=== PATIENT | male | born 1955 | race African-American/Black ===

== ENCOUNTER 2018-09-25 13:31 | Day surgery (SDC) | payer SELFPAY ==
[~2018-09-25] VITALS: Ht 190.5 cm; Wt 73.2 kg
[2018-09-25] MEDS ORDERED: HCTZ 25MG TAB25 MG PO (14:09)
[2018-09-25 14:26] VITALS: BP 11/84; PULSE 102; TEMP 98.7
[2018-09-25 15:43] VITALS: BP 117/76; PULSE 97
--- NOTE | 2018-09-25 15:43 | NUR ---
Patient returned back to bay 6. Alert and oriented, ambulated to chair without difficulty. Vital signs WNL. Denies any pain or nausea. Makenzie at bedside. Call cutler within reach, will continue to monitor.
[2018-09-25 15:58] VITALS: BP 116/77; PULSE 88
--- NOTE | 2018-09-25 15:58 | NUR ---
Patient requesting juice, muffin, and crackers at this time. Vital signs stable. Will continue to monitor.
[2018-09-25 16:13] VITALS: BP 108/76; PULSE 100
--- NOTE | 2018-09-25 16:13 | NUR ---
Patient states he is ready to go home at this time. Vital signs stable. Tolerated food and drink without difficulty.
--- NOTE | 2018-09-25 16:20 | NUR ---
Discharge instructions reviewed with patient and extensively. Per Endo report given to patient. Verbalized understanding. IV removed per protocol. Patient to get dressed at this time.
--- NOTE | 2018-09-25 16:24 | NUR ---
Patient ambulated down to lobby without issue. To be driven home by Makenzie.
[2018-09-25 16:49] VITALS: BP 93/64; PULSE 90
== END 2018-09-25 16:24 | disposition home or self-care (01) ==
LOC: EDSEX 13:31 → SDCO 13:31
DX: C18.2 Malignant neoplasm of ascending colon (principal); Z79.82 Long term (current) use of aspirin; K59.00 Constipation, unspecified
CPT/HCPCS: J2250; J2405; J3010; J7030

== ENCOUNTER 2018-10-02 12:19 | Inpatient (IN) | payer OTHER ==
[~2018-10-02] VITALS: Ht 190.5 cm; Wt 74.0 kg
[~2018-10-02 12:19] MED LIST: HCTZ 25MG TAB25 MG PO
[2018-10-14] VITALS (16 sets, daily range): BP systolic 118–146; BP diastolic 82–99; PULSE 71–99; TEMP 97.6–98.6
--- NOTE | 2018-10-14 11:20 | NUR ---
Patient brought back to bay 4, steady on feet. Alert and oriented x4. Consents reviewed and signed, all questions answered. Lab called STAT, awaiting results. IV started in right hand, infusing WNL. Vital signs WNL. Heart sounds regular, lung sounds clear, bowel sounds active. Sondra at bedside. Call cutler within reach, will continue to monitor.
[2018-10-14 11:45] LABS: MEAN CELL VOLUME 55 fl (80.0-100.0); MEAN CORPUSCULAR HGB CONC 26 g/dl (33.0-37.0); MEAN PLATELET VOLUME 8.1 fl (7.4-10.4); PLATELET COUNT 611 K/mm3 (130-400); RED BLOOD COUNT 3.81 M/mm3 (4.20-5.60); REDCELL DISTRIBUTION WIDTH-CV 22.7 % (11.5-14.5)
--- NOTE | 2018-10-14 11:50 | NUR ---
Hemaglobin low at 5.4 Dr. Kat made aware. Awaiting further orders.
[2018-10-14 11:51] LABS: HEMOGLOBIN 5.4 g/dl (13.5-18.0); MEAN CORPUSCULAR HEMOGLOBIN 14 pg (27.0-31.0)
[2018-10-14 11:56] LABS: ALBUMIN 3.6 gm/dL (3.5-5.0); BILIRUBIN,TOTAL 0.3 mg/dL (0.0-1.0); CALCIUM 9.5 mg/dL (8.4-10.2); CREATININE, serum 1.22 (0.66-1.25); POTASSIUM 3.8 mmol/L (3.4-5.0); TOTAL PROTEIN 7.3 gm/dL (6.4-8.2)
--- NOTE | 2018-10-14 13:30 | NUR ---
Per Dr. Kat patient to be admitted to surgical floor. Given room 347. Report called to Bianca BRADSHAW, all questions answered. Patient to be transported to floor.
--- NOTE | 2018-10-14 14:15 | NUR ---
Patient brought up to room 347 via wheelchair. Nurse Bianca in room.
--- NOTE | 2018-10-14 15:02 | NUR ---
Patient to room 347 from ambulatory, report obtained from Megan in Same day surgery. Patient oriented to room. Clear liquid tray ordered, patient report feeling hungry. Iv to Right wrist. We reviewed orders for blood transfusion. Blood obtained & protocol followed. Verified with AUGUSTINE Ngo. Signs & symptoms of a transfusion reaction reviewed. Infusing at 60ml.hr. Vss
--- NOTE | 2018-10-14 17:55 | NUR ---
Patient resting in bed. He tolerated the first unit of blood with no sign or symptoms of reaction. patient up to the bathroom, voided. He continues to tolerate clears. Second unit of blood started. Blood protocol followed & verified with Taylor Ngo. Infusing to Right wrist @ 60ml/hr. Vss on room air. Will closely monitor.
--- NOTE | 2018-10-14 19:10 | NUR ---
Patient up to the bathroom, voided. He continues to tolerate blood transfusion, reports feeling good. VSS. Will report off to Mario BRADSHAW
--- NOTE | 2018-10-14 20:00 | NUR ---
SHIFT REPORT OBTAINED FROM HANY BRADSHAW. PT RESTING IN BED. NO DISTRESS NOTED. #2 BLOOD CONTINUES TO INFUSE WITHOUT DIFFICULTY. DENIES ANY PAIN.
[2018-10-14 22:22] LABS: HEMATOCRIT 23.1 % (42.0-52.0)
[2018-10-14 22:25] LABS: HEMOGLOBIN 6.4 g/dl (13.5-18.0)
--- NOTE | 2018-10-14 22:28 | NUR ---
CRITICAL LAB VALUE REPORTED. HGB 6.4. WILL NEED A 3RD UNIT OF BLOOD. VSS. INT NEEDLE FLUSHES W/O DIFFICULTY.
--- NOTE | 2018-10-14 23:05 | NUR ---
#3 UNIT OF PRBC STARTED NOW. REVIEWED POSSIBLE S/E OR ADVERSE REACTIOS TO IMMEDIATELY NOTIFY THE NURSE. PT VERBALIZED UNDERSTANDING,
--- NOTE | 2018-10-14 23:56 | NUR ---
PT TOLERATING BLOOD INFUSION WITHOUT DIFFICULTY.
[2018-10-15] VITALS (12 sets, daily range): BP systolic 128–150; BP diastolic 84–105; PULSE 69–83; TEMP 97.5–98.4
--- NOTE | 2018-10-15 02:05 | NUR ---
#3 UNIT OF BLOOD COMPLETED. NO REACTION NOTED. TOLERATED WELL. STARTED LR AT 100CC/HR TO RT F/A.
--- NOTE | 2018-10-15 02:15 | NUR ---
PT REPORTED HE HAD A BLOODY BM. HE FLUSHED IT. INSTRUCTED NOT TO FLUSH TOILET NEXT TIME. PT VERBALIZED UNDERSTANDING. PT DENIES PAIN AT THIS TIME.
--- NOTE | 2018-10-15 03:33 | NUR ---
PT REPORTED ANOTHER BLOODY STOOL. BRIGHT RED BLOOD IN STOOL. OUTPUT HAT PLACED IN TOILET. INSTRUCTED TO USE URINAL FOR ACCURATE OUTPUT. DENIES DIZZINESS. HAS MINOR PAIN TO RLQ. HAS BEEN CHRONICALLY TENDER TO TOUCH. DENIES NEED FOR PAIN MEDICATION. NOTIFIED HOSPITAL SECURITY OFFICER OF ACTIVE BLEEDING. RECOMMENDED TO SEE WHAT THE OUTPUT IS WITH NEXT STOOL. PT INSTRUCTED AND VERBALIZED UNDERSTANDING.
--- NOTE | 2018-10-15 04:41 | NUR ---
PT RESTING. NO RESP DISTRESS.
--- NOTE | 2018-10-15 04:50 | NUR ---
PT RESTING. NO FURTHER RECTAL BLEEDING. NO PAIN.
[2018-10-15 05:58] LABS: BASO # 0.1 (0.0-0.2); BASO % 0.9 % (0.0-2.0); EOS # 0.1 (0.0-0.7); EOS % 2.2 % (0-4.0); GRAN # 3.4 (1.4-6.5); GRAN % 62.1 % (42.2-75.2); LYMPH # 1.3 (1.2-3.4); LYMPH % 23.7 % (20.0-51.0); MEAN CORPUSCULAR HGB CONC 29 g/dl (33.0-37.0); MEAN PLATELET VOLUME 8.8 fl (7.4-10.4); MONO # 0.6 (0.1-0.6); MONO % 10.9 % (1.7-9.3); RED BLOOD COUNT 3.99 M/mm3 (4.20-5.60); REDCELL DISTRIBUTION WIDTH-CV 31.2 % (11.5-14.5)
[2018-10-15 05:59] LABS: HEMATOCRIT 25.3 % (42.0-52.0); HEMOGLOBIN 7.3 g/dl (13.5-18.0); MEAN CELL VOLUME 63 fl (80.0-100.0); MEAN CORPUSCULAR HEMOGLOBIN 18 pg (27.0-31.0); PLATELET COUNT 471 K/mm3 (130-400)
--- NOTE | 2018-10-15 06:00 | NUR ---
PT HAD RESTING. NO RESP DISTRESS. PT HAS NOT SLEPT WELL TONIGHT.
[2018-10-15 06:07] LABS: ALBUMIN 2.9 gm/dL (3.5-5.0); CALCIUM 9.1 mg/dL (8.4-10.2); CREATININE, serum 1.13 (0.66-1.25); PHOSPHOROUS 3.6 mg/dL (2.5-4.5); POTASSIUM 4.4 mmol/L (3.4-5.0)
--- NOTE | 2018-10-15 07:00 | NUR ---
Report received from AUGUSTINE Vásquez. PT in bed resting after stool in hat in commode, stool is tigist red. Liquid output. PT states this is the first time he has bene able to really see it in a hat from the toilet and is surprised at how bloody it is appearing. Otherwise denies needs, will continue to monitor.
--- NOTE | 2018-10-15 10:40 | NUR ---
Assessment charted. Discussed lab values, plan of care, IVF to RW. Pt deneis any pain. REsting quietly in bed, encouraged CL protein rich foods today. Will continue to monitor.
[2018-10-15 11:26] LABS: INR 1.3 (0.8-3.0); PROTHROMBIN TIME 15.4 SECONDS (9.7-12.8)
--- NOTE | 2018-10-15 14:58 | NUR ---
Remained with patient for first 15 minutes of PRBCs tranfusion. Pt has no s/sx of a transfusion reaction. Verified with 2nd RN. Pt tolerating well, resting quietly in bed. Denies needs, will continue to monitor.
--- NOTE | 2018-10-15 18:08 | NUR ---
Pt has done well today. PT resting in bed. Up to shower today, resting in bed after transfusion. Has had 3 liquid bloody stools today. Feels well. Eating large clear liquid tray for supper at this time. IVF to RF. Aware he is NPO at midnight. Will give bedside shift report to [facility] nurse who will resume care.
--- NOTE | 2018-10-15 20:05 | NUR ---
Pt. sitting up in bed at this time. Pt. is A&OX3, assessment complete. IV to rt. forearm patent. Pt. denies pain or other needs at this time.
[2018-10-15 21:30] LABS: HEMATOCRIT 30.4 % (42.0-52.0); HEMOGLOBIN 8.8 g/dl (13.5-18.0)
[2018-10-16] VITALS (13 sets, daily range): BP systolic 123–157; BP diastolic 84–104; PULSE 70–93; TEMP 98.1–98.4
--- NOTE | 2018-10-16 06:04 | NUR ---
Pt. slept well through the night. Pt. remains A&OX3. IV to rt. forearm remains patent, IV fluids infusing per orders. Pt. denies pain or other needs at this time. Call light within reach.
[2018-10-16 06:06] LABS: BASO # 0.1 (0.0-0.2); EOS # 0.2 (0.0-0.7); EOS % 2.6 % (0-4.0); GRAN # 3.3 (1.4-6.5); GRAN % 57.1 % (42.2-75.2); LYMPH # 1.7 (1.2-3.4); LYMPH % 28.8 % (20.0-51.0); MEAN CELL VOLUME 65 fl (80.0-100.0); MEAN CORPUSCULAR HGB CONC 29 g/dl (33.0-37.0); MEAN PLATELET VOLUME 8.7 fl (7.4-10.4); MONO # 0.6 (0.1-0.6); MONO % 10.2 % (1.7-9.3); PLATELET COUNT 460 K/mm3 (130-400)
[2018-10-16 06:21] LABS: ALBUMIN 2.7 gm/dL (3.5-5.0); CREATININE, serum 1.07 (0.66-1.25); PHOSPHOROUS 3.6 mg/dL (2.5-4.5); POTASSIUM 3.9 mmol/L (3.4-5.0)
[2018-10-16 06:38] LABS: HEMATOCRIT 27.9 % (42.0-52.0); HEMOGLOBIN 8.1 g/dl (13.5-18.0); MEAN CORPUSCULAR HEMOGLOBIN 19 pg (27.0-31.0)
[2018-10-16 12:59] LABS: HEMATOCRIT 28.4 % (42.0-52.0); HEMOGLOBIN 8.4 g/dl (13.5-18.0)
--- NOTE | 2018-10-16 13:22 | NUR ---
SW attempted to meet with the patient. The patient was in surgery, SW will attempt at a later time.
[2018-10-16 17:27] LABS: HEMATOCRIT 29.1 % (42.0-52.0); HEMOGLOBIN 8.6 g/dl (13.5-18.0)
[2018-10-16 17:35] LABS: CREATININE, serum 1.21 (0.66-1.25); POTASSIUM 4.5 mmol/L (3.4-5.0)
--- NOTE | 2018-10-16 18:10 | NUR ---
Patient returns from surgery, assessment unchanged except for abdomen with lap sites x3, low transverse incision; all CDI. Bowel sounds hypoactive. No flatus. No c/o pain at this time.
--- NOTE | 2018-10-16 19:35 | NUR ---
Report received from Aury BRADSHAW. Pt is laying bed. Awake and alert. Pt able to answer orientation questions appropriately, but displays some periodic confusion. Pt c/o abdominal pain 09/21. Pt requesting PRN medication. Respirations even and unlabored. Lungs clear. BS hypoactive. Torres catheter to depedent drainage. Clear, yellow/green urine. Lap sites x3 and low transverse incision clean dry and intact, closed with swiftset.
--- NOTE | 2018-10-16 22:00 | NUR ---
Pt is awake and alert. Reports pain is "very little" now. Pt is fearful of moving. Pt reports feeling hungry and has no nausea, but does not want to eat anything in fear of having a bowel movement and haivng to get out of bed. Pt educated about the importance of advancing his diet and postsurgical mobility. Pt agreed to try some clear liquids.
[2018-10-17 05:22] VITALS: BP 140/95; PULSE 78; TEMP 98.1
--- NOTE | 2018-10-17 05:45 | NUR ---
Torres catheter discontinued per MD order. 10mL sterile water removed from balloon to deflate. Catheter removed. Well tolerated by patient. Urinary output has been good throughout the night. Pt instructed to call if he needs to get up to use the bathroom. Pt denies pain or needs.
[2018-10-17 06:18] LABS: BASO % 0.1 % (0.0-2.0); GRAN # 13.2 (1.4-6.5); LYMPH # 0.9 (1.2-3.4); LYMPH % 6.2 % (20.0-51.0); MEAN CELL VOLUME 64 fl (80.0-100.0); MEAN CORPUSCULAR HGB CONC 30 g/dl (33.0-37.0); MEAN PLATELET VOLUME 8.5 fl (7.4-10.4); MONO % 6.3 % (1.7-9.3); PLATELET COUNT 409 K/mm3 (130-400); RED BLOOD COUNT 4.22 M/mm3 (4.20-5.60)
[2018-10-17 06:28] LABS: CALCIUM 9.2 mg/dL (8.4-10.2); CREATININE, serum 1.17 (0.66-1.25); MAGNESIUM 1.8 mg/dL (1.6-2.3); POTASSIUM 4.3 mmol/L (3.4-5.0)
[2018-10-17 06:37] LABS: HEMATOCRIT 27.1 % (42.0-52.0); MEAN CORPUSCULAR HEMOGLOBIN 19 pg (27.0-31.0)
[2018-10-17 08:20] VITALS: BP 151/96; PULSE 81; TEMP 98.7
--- NOTE | 2018-10-17 09:30 | NUR ---
Patient alert and oriented, answers questions appropriately. See assessment. Abdomen soft, non tender, non distended. Bowel sounds active x4 quads. +Flatus. Lap sites x3 and low transverse incision with edges well approximated, no drainage noted. ERAS protocol reviewed with patient. No c/o at this time.
--- NOTE | 2018-10-17 10:11 | NUR ---
SW met with the patient to discuss discharge plan. The patient lives in [place] with his , Makenzie. He reports independence with ADLs and does not use any DME. The patient receives primary care and his medications at the [facility] in [place]. He reports no difficulties obtaining his meds. The patient does not have advanced directives and he was not interested in completing them at this time. The patient plans to return home with his upon discharge. No addtitional needs at this time.
[2018-10-17 12:37] VITALS: BP 118/89; PULSE 79; TEMP 97.6
[2018-10-17 15:46] VITALS: BP 126/84; PULSE 58; TEMP 97.6
--- NOTE | 2018-10-17 20:00 | NUR ---
Patient up in chair at bedside. Offers no concerns at this time.
[2018-10-17 21:16] VITALS: BP 123/79; PULSE 70; TEMP 98
--- NOTE | 2018-10-17 21:30 | NUR ---
Patient in bed. Is alert and oriented x4. Denies pain, verbalized passing stool and voiding without problem. Robotic incisions to left abdomen glued and dry, low tranverse incision dry as well. Takes HS med at this time.
--- NOTE | 2018-10-18 00:38 | NUR ---
REMOVED IV SITE TO RIGHT HAND DUE TO LEAKING. HAS 2ND IV SITE TO LEFT INNER FOREARM, FLUSHES WELL.
[2018-10-18 00:42] VITALS: BP 129/92; PULSE 77; TEMP 97.5
[2018-10-18 04:15] VITALS: BP 119/86; PULSE 72; TEMP 97.7
[2018-10-18 07:24] LABS: BASO % 0.4 % (0.0-2.0); EOS # 0.1 (0.0-0.7); EOS % 0.8 % (0-4.0); GRAN # 8.3 (1.4-6.5); GRAN % 73.9 % (42.2-75.2); LYMPH % 17.7 % (20.0-51.0); MEAN CELL VOLUME 64 fl (80.0-100.0); MEAN CORPUSCULAR HGB CONC 30 g/dl (33.0-37.0); MEAN PLATELET VOLUME 9.2 fl (7.4-10.4); MONO # 0.7 (0.1-0.6); MONO % 6.5 % (1.7-9.3); PLATELET COUNT 392 K/mm3 (130-400)
[2018-10-18 07:28] LABS: HEMATOCRIT 25.6 % (42.0-52.0); HEMOGLOBIN 7.6 g/dl (13.5-18.0); MEAN CORPUSCULAR HEMOGLOBIN 19 pg (27.0-31.0)
--- NOTE | 2018-10-18 08:00 | NUR ---
Patient resting in bedside recliner eating breakfast at this time. Patient is alert and oriented, answers questions appropriately. Incisions are well approximated. Pain is controlled on ERAS protocol, patient denies further needs at this time, call light within reach.
[2018-10-18 08:14] VITALS: BP 142/92; PULSE 72; TEMP 97.6
[2018-10-18 12:09] VITALS: BP 127/101; PULSE 93; TEMP 97.6
--- NOTE | 2018-10-18 12:45 | NUR ---
Patient given discharge teaching with instructions to make a follow up appointment on 10/19/18. INT removed from left forearm, hemostasis achieved. Patient ambulated to visitor entrance with family and surgical staff.
== END 2018-10-18 12:45 | disposition home or self-care (01) | DRG 330 ==
LOC: SURG 10-14 11:00 → INPTSU 10-14 11:10 → SURG 10-14 11:30
PROVIDERS: Registered Nurse; Surgery; Urology; ADMIT Surgery
PROC: BT141ZZ Fluoroscopy of Kidneys, Ureters and Bladder using Low Osmolar Contrast (ICD-10-PCS; 2018-10-16)
PROC: 0TJB8ZZ Inspection of Bladder, Via Natural or Artificial Opening Endoscopic (ICD-10-PCS; 2018-10-16)
PROC: 0DTK4ZZ Resection of Ascending Colon, Percutaneous Endoscopic Approach (ICD-10-PCS; principal; 2018-10-16 13:30)
PROC: 8E0W4CZ Robotic Assisted Procedure of Trunk Region, Percutaneous Endoscopic Approach (ICD-10-PCS; 2018-10-16 13:30)
DX: C18.2 Malignant neoplasm of ascending colon (principal); C77.2 Secondary and unspecified malignant neoplasm of intra-abdominal lymph nodes; E44.0 Moderate protein-calorie malnutrition; K92.1 Melena; I10 Essential (primary) hypertension
CPT/HCPCS: A4314; J0360; J0690; J1100; J1650; J1885; J2250; J2370; J2405; J2704; J3010; J7050; J7120; P9016